=== PATIENT | female | born 1945 | race Caucasian/White ===

== ENCOUNTER → 2016-11-19 | Outpatient (CLI) | payer MEDICARE | LOC: RAD 12:53 | PROVIDERS: ATTEND Family Medicine | DX: Z12.31 Encounter for screening mammogram for malignant neoplasm of breast (principal) ==

== ENCOUNTER 2016-11-21 09:42 | Outpatient (RCR) | payer MEDICARE ==
--- NOTE | 2016-10-09 14:21 | PT/OT/ST INITIAL EVALUATION ---
Department of Health and Human Services Form Approved [facility] Care Financing Administration OMB No. [id number] PLAN OF CARE/ASSESSMENT FOR OUTPATIENT REHABILITATION (Complete for Initial Claims Only) 1. LAST NAME Giovana FIRST NAME Diana Marr 2. ACC # [id number] 3. [facility] [id number] 4. PROVIDER NO. [id number] 5. TYPE: X PT 6. PRIOR THERAPY (Same condition) 7. PRIMARY DX Status post right shoulder scope 8. SECONDARY DX [place] stiffness 9. ONSET DATE 10/03/2016 10. REFERRAL DATE 11. SOC. DATE/TIME 10/07/2016 9:46 a.m. 12. PRIOR LEVEL OF FUNCTION; PERTINENT HISTORY (Prior therapy results, reason for referral.) S: Prior to therapy, the patient did consent to today's evaluation and treatment. The patient is a 71-year-old female referred to physical therapy by Dr. Rodriguez to address status post right shoulder scope. The patient does rate her overall and general health as good. The patient states, since March 2016, she has been having increasing shoulder pain on the right side. This did culminate in limitations and function culminating in the need for shoulder scope, which was performed on 10/03/2016. The patient and her both provided information today and did state that he removed at least pieces of loose cartilage, as well as trimmed flaps that were ready to break free. All this located on the humeral head. The patient also states that he did release the long head of the biceps as well. The patient states her pain is well controlled and she has had no pain meds since Friday prior to this evaluation. The patient does have a sling to use at her discretion, but has not used it at this time. The patient states she is back to sleeping in bed, but does continue to have limitations and pain in her right shoulder. The patient is right handed. Prior level of function: Prior to surgery the patient states she was unable to raise her arm out to the side, but could raise her arm forward. She was unable to put her arm behind her back and was unable to perform any overhead work. She was also unable to reach behind her. Current level of function: Currently the patient is not able to use the upper extremity as she has increased pain with use and is not using the right upper extremity for any functional activities at this time. Therapy History: None previous for the right shoulder. No obstacles of delivery of care are observed. Maximal pain level is 2 to 3/10. The patient describes the pain as an ache and feeling tight when she attempts to move the arm overhead. Aggravating factors includes any movement of the right shoulder. Relieving factors: Includes ice, which she is using 3 times per day. Diagnostic tests: No diagnostic tests have been performed since surgery. Past medical history: Includes previous right scope of the shoulder to remove the bone spur and cartilage damage. The patient additionally has a history of osteoarthritis in the knees and shoulders, as well having decreased thyroid function. Medication list: Includes Synthroid, Omeprazole, and montelukast. The patient's goal for physical therapy is to have normal use of her right upper extremity back. 13. INITIAL ASSESSMENT/SAFETY PRECAUTIONS/MEDICAL COMPLICATIONS (Level of function at start of care. Be specific, use objective measures, list problems.) O: APPEARANCE AND OBSERVATION: The patient presents as an older female in apparently healthy condition. She does ambulate holding her right arm at her side with no swing pattern with gait. PALPATION: With palpation the patient has general tenderness to palpation at the anterior shoulder, but no specific point tender areas. SPECIAL TESTS: Circumferential measures were taken at the axilla and on the left these measurements were 33.5 cm and on the right were 34.5 cm. RANGE OF MOTION/FLEXIBILITY: Actively was measured in flexion on the right 113 degrees, and on the left 169 degrees. Shoulder extension 39 degrees on the right, 70 degrees on the left. Shoulder abduction is 81 degrees on the right and 174 degrees on the left. Internal and external rotation was measured via Apley method and on the right was L4 and T2 respectively and on the left are T3 and T4 respectively. STRENGTH: Throughout the left upper extremity is 4+ to 5/5 throughout. Throughout the right upper extremity shoulder abduction, internal and external rotation measured grossly 3-/5 with pain reported. All other motions grossly 3/5. TODAY'S TREATMENT: Following the initial evaluation, manual therapy techniques were performed throughout the right shoulder including joint mobilizations and passing stretching. Therapeutic exercise was then performed and issued as a home exercise program with emphasis on beginning postural stabilization activities and active assist range of motion. A vasopneumatic device with cold and compression was then performed through the right shoulder. The patient did report decreased pain following today's treatment and did have normalized arm swing with gait. 14. INITIAL POC: (Specify procedures, modalities, short and longterm goals) A: The patient presents at physical therapy with diagnosis of status post right shoulder scope with resultant decreased active range of motion, decreased strength, increased pain and increased swelling. PROGNOSIS: The patient does have a good prognosis with regular therapy attendance and compliance with home exercise program. This patient is expected to benefit from physical therapy services in order to have increased active range of motion, increased strength for return to full prior activities. OUTCOME ASSESSMENT: QuickDASH, which score 84% disability. FUNCTIONAL LIMITATION CODES: B7011-TD and L0450-[id number] GOALS: 1. The patient to be independent and compliant with home exercise program in 1 week. 2. The patient with active range of motion right shoulder flexion and abduction to at least 130 degrees in 2 weeks to allow reaching into cabinets. 3. 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 4. The patient a QuickDASH no more than 10% disability in 4 weeks to allow shopping and carrying groceries without limitation. The diagnosis, prognosis, treatment plan, risks and expected outcome were discussed with the patient and the patient did agree to today's established plan of care. PLAN: Plan to treat the patient 2 times per week for 4 weeks in order to address status post right shoulder scope. Therapeutic treatments to include modalities to decrease pain, inflammation and swelling. Manual therapy techniques as indicated. Therapeutic exercise targeting postural and rotator cuff stabilization activities, as well as active range of motion and patient education and home exercise program to be advanced as warranted. 15. FUNCTIONAL LEVEL (End of claim period) 16. PHYSICIAN SIGNATURE ? ON FILE OR ENTER HERE: 17. DATE: I certify the need for these services furnished under this plan of care and if for partial hospitalization. 18. CERTIFICATION FROM THROUGH FORM
[~2016-11-21 09:42] MED LIST: CALC-84 PO; DICY10CA12 PO; LEVO125T70 PO; MULT-35 PO
== END 2016-11-25 16:08 | disposition home or self-care (01) ==
LOC: PT 09:42
PROVIDERS: ATTEND Orthopaedic Surgery
DX: Z98.890 Other specified postprocedural states (principal); M25.511 Pain in right shoulder
CPT/HCPCS: 97016; 97035; 97110; 97112; 97140; 97161; G8984; G8985; G8986